=== PATIENT | female | born 1970 | race Caucasian/White ===

== ENCOUNTER 2021-06-10 07:23 | Day surgery (SDC) | payer BC ==
[2021-06-10] MEDS ORDERED: Lactated Ringers 1,000 ML IV ONE ×2 (08:26→11:12)
[2021-06-10] MEDS ORDERED: Lactated Ringers 1,000 ML IV SCH (08:30)
--- NOTE | 2021-06-10 08:35 | HP ---
DATE OF SURGERY: 06/10/2021 HISTORY OF PRESENT ILLNESS: The patient is a 50-year-old in need of screening colonoscopy. PAST MEDICAL HISTORY: Depression, some folate deficiency, hypercholesterolemia, rheumatoid arthritis. Ileitis in the past. PAST SURGICAL HISTORY: section x2. Cysts removed in the past of her back. MEDICATIONS: Brimonidine eye drops, citalopram, hydrochlorothiazide, fluticasone nasal spray, prednisone drops in eyes as well. ALLERGIES: ERYTHROMYCIN. FAMILY HISTORY: Heart disease and breast cancer. SOCIAL HISTORY: No smoking or alcohol abuse. REVIEW OF SYSTEMS: Fourteen systems reviewed per admission assessment. She has had some visual and balance problems due to MEDICAL INSURANCE CLAIMS SPECIALIST demyelination being followed by oncology, neurology and an packaging specialist. No chest pain or palpitations currently. PHYSICAL EXAMINATION: GENERAL: No acute distress. HEENT: Sclerae nonicteric. NECK: No JVD. CHEST: Equal excursion, nonlabored breathing. CVS: Regular rhythm and pulse. ABDOMEN: Currently nontender. No peritoneal signs. EXTREMITIES: No edema or cyanosis. NEURO: Again she has balance problems. RECTAL: Deferred timed to endoscopy exam. PSYCH: Appropriate mood and affect. IMPRESSION: She is in need of screening colonoscopy. Risks and benefits explained in detail including but not limited to bleeding or infection, risk of bowel injury or perforation, risk of missed or nondiagnosis or incomplete exam possibly requiring barium enema, other studies or procedures, general risk of anesthesia or sedation, risk of bowel prep but not limited to, consent obtained. Will proceed as an outpatient.
[2021-06-10] MEDS ORDERED: DIPRIVAN 200 MG/20 ML IV ONE ×3 (09:45→11:04)
[2021-06-10] MEDS ORDERED: Xylocaine-Mpf 2% 5 Ml Vial ONE (09:45)
[2021-06-10 11:55] VITALS: BP 131/82; PULSE 79; O2SAT 94
--- NOTE | 2021-06-10 14:56 | OP ---
SURGERY DATE/TIME: 06/10/2021 1035 PREOPERATIVE DIAGNOSIS: Need for screening colonoscopy. POSTOPERATIVE DIAGNOSES: 1) Fair bowel prep. 2) ASA Class II. 3) An 8 mm proximal sigmoid colon pedunculated polyp. 4) Small early polyp versus hyperplastic lesion transverse colon. 5) Withdrawal time approximately 12 minutes. PROCEDURES: 1) Colonoscopy to terminal ileum. 2) Retrograde ileoscopy. 3) Random cold biopsy of the ileum to evaluate for microscopic ileitis. 4) Random cold biopsy of colon to evaluate for microscopic colitis. 5) Hot biopsy polypectomy small transverse colon polyp. 6) Hot snare polypectomy. 7) Approximately 8 mm pedunculated on a stalk proximal sigmoid colon polyp with ink spot tattooing of the sigmoid colon polypectomy site. SURGEON: Dr. Arsh Smalls. ANESTHESIA: MAC. ESTIMATED BLOOD LOSS: Minimal. INDICATIONS: As noted above. Risks and benefits explained in detail but not limited to and consent obtained. DESCRIPTION OF PROCEDURE AND FINDINGS: The patient is taken to the endoscopy room. MAC anesthesia induced. After official time out and no disagreement with planned procedure, digital rectal exam did not reveal any rectal masses. Video colonoscope inserted and passed up through the slightly tortuous sigmoid, descending, transverse and ascending colon. With external pressure the scope was able to be passed to the cecum. Appendiceal orifice and valve photo documented. Scope is passed up the terminal ileum. Retrograde ileoscopy performed which was grossly unremarkable. No signs of any inflammatory bowel disease. 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 Random cold biopsies were taken also of the colon to evaluate for microscopic colitis. The scope is slowly and carefully withdrawn over the next 12 minutes. Suction irrigating small amount of liquidy stool. Fair prep. Small polyp in the transverse colon removed with hot biopsy forceps with brief bursts of cautery. Good hemostasis noted. An 8 mm polyp on a stalk was removed on the way in with hot snare polypectomy. In one location 0.5 cc submucosa injected with spot tattoo to make the location was accomplished. No signs of any other large polyps, masses or obstructing lesions. The scope is withdrawn. There were no immediate complications. We will discuss her findings later.
== END 2021-06-10 12:00 | disposition home or self-care (01) ==
LOC: SDC 07:23
PROVIDERS: ATTEND Surgery
DX: Z12.11 Encounter for screening for malignant neoplasm of colon (principal); D12.5 Benign neoplasm of sigmoid colon; D12.3 Benign neoplasm of transverse colon
CPT/HCPCS: 88305; J2704